=== PATIENT | female | born 1990 | race Caucasian/White ===

== ENCOUNTER → 2018-04-17 09:15 | Outpatient (CLI) | payer SELFPAY ==
--- NOTE | 2018-04-17 09:15 | DT_ITS ---
This patient was seen during an EMR downtime April 16, 2018 - April 23, 2018. This patient may have a combination of paper and electronic documentation or all paper documentation. All documentation is viewable within the e-chart portion of [facility] for each patient visit.
[2018-04-21 09:55] LABS: Group B Strep DNA By PCR Negative (Negative); Internal Control PASS; Probe Check PASS; Specimen Processing Control PASS
== END ==
PROVIDERS: Visit Provider Obstetrics & Gynecology
DX: Z36.85 Encounter for antenatal screening for Streptococcus B (principal)
CPT/HCPCS: 87081; 87653

== ENCOUNTER 2018-05-09 12:05 | Inpatient (IN) | payer SELFPAY ==
[2018-05-09 12:14] VITALS: BMI 37.5
[2018-05-09] MEDS: Oxytocin 10 UNITS/ML Vial IM (12:30)
--- NOTE | 2018-05-09 12:40 | PCM.OB.VAG ---
Vaginal Delivery Maternal Presentation: Active Labor, Spontaneous Rupture of Membranes Amniotic Membrane Rupture Type: Spontaneous at home Amniotic Fluid Description: Clear Final JUAN DIEGO: 05/15/18 Final JUAN DIEGO Source: US <20 weeks Gestational age: 39 Weeks and 1 Days Date of Procedure: 05/09/18 Pre-Operative Diagnosis: IUP, Prior Post-Operative Diagnosis: IUP, Prior Surgery/ Procedure Performed: Spontaneous Vaginal Delivery Type of Anesthesia: Local with 1% lidocaine Description of Procedure: Spontaneous vaginal delivery of a viable female with Apgars of 8/9 from an occiput anterior presentation with clear amniotic fluid and normal three-vessel placenta. First-degree midline episiotomy. Second-degree midline laceration repaired with 3-0 Vicryl suture under local anesthesia. Sponge counts okay. Successful . Delivery physician: Arnaud Giron MD. Presentation: Vertex Placental Delivery Description: Spontaneous Placenta Disposition: [facility] Cord Vessel Description: 3 Vessels Cord Entanglement: None Estimated Blood Loss: 250 cc Infant A gender: Female (1 minute): 8 (5 minute): 9 Episiotomy Description: Midline, 1st degree Laceration: Midline, Perineal Extension/lac, 2nd degree Medications given after delivery: IM [place] Complications: None
--- NOTE | 2018-05-09 12:43 | OP.PCM_ITS ---
Vaginal Delivery Maternal Presentation: Active Labor, Spontaneous Rupture of Membranes Amniotic Membrane Rupture Type: Spontaneous at home Amniotic Fluid Description: Clear Final JUAN DIEGO: 05/15/18 Final JUAN DIEGO Source: US <20 weeks Gestational age: 39 Weeks and 1 Days Date of Procedure: 05/09/18 Pre-Operative Diagnosis: IUP, Prior Post-Operative Diagnosis: IUP, Prior Surgery/ Procedure Performed: Spontaneous Vaginal Delivery Type of Anesthesia: Local with 1% lidocaine Description of Procedure: Spontaneous vaginal delivery of a viable female with Apgars of 8/9 from an occiput anterior presentation with clear amniotic fluid and normal three- vessel placenta. First-degree midline episiotomy. Second-degree midline laceration repaired with 3-0 Vicryl suture under local anesthesia. Sponge counts okay. Successful . Delivery physician: Arnaud Giron MD. Presentation: Vertex Placental Delivery Description: Spontaneous Placenta Disposition: [facility] Cord Vessel Description: 3 Vessels Cord Entanglement: None Estimated Blood Loss: 250 cc A gender: Female (1 minute): 8 (5 minute): 9 Episiotomy Description: Midline, 1st degree Laceration: Midline, Perineal Extension/lac, 2nd degree Medications given after delivery: IM [place] Complications: None
--- NOTE | 2018-05-09 12:44 | PCM.DCVAG ---
Discharge Diet: No Restrictions Discharge Activity: May Shower, May Take a Tub Bath May resume sexual activity in: 4-6 weeks Additional Activity Instructions:: Nothing in the vagina for 4-6 weeks. You may return to work/school in 6 weeks. Call your doctor if you observe: Fever of 101 or Higher, Inability to urinate, Inability to have a bowel movement, Using more than one pad per hour Additional Instructions: If you experience any of the following, contact your healthcare provider. Bleeding that soaks a pad every hour for 2 hours Unrelieved incision or abdominal pain Swelling, redness, discharge or bleeding from your incision or episiotomy site Your incision begins to separate Problems urinating (including inability to urinate or burning while urinating). Visual changes Severe headache Flu-like symptoms Pain or redness in one of both of your breasts Pain, warmth, tenderness or swelling in your legs, especially the calf area Frequent nausea and vomiting Symptoms of depression or anxiety If you experience any of the following, call 911 or go to the nearest Emergency Room. Chest pain Problems breathing Seizure activity Partial or complete paralysis of a body part, slurred speech, weakness or drooping of the face, or a sudden inability to walk or hold your balance Allergies/Adverse Reactions: Allergies No Known Allergies Allergy (Verified 02/25/15 03:32) Medications to take at Discharge Vits [Prenatabs FA] 1 tablet PO DAILY 02/25/15 Please Follow Up With: Arnaud Giron MD - [phone] When: Call to make an appointment with your doctor in 6 weeks.
--- NOTE | 2018-05-09 12:45 | DCINST_ITS ---
Discharge Diet: No Restrictions Discharge Activity: May Shower, May Take a Tub Bath May resume sexual activity in: 4-6 weeks Additional Activity Instructions:: Nothing in the vagina for 4-6 weeks. You may return to work/school in 6 weeks. Call your doctor if you observe: Fever of 101 or Higher, Inability to urinate, Inability to have a bowel movement, Using more than one pad per hour Additional Instructions: If you experience any of the following, contact your healthcare provider. * Bleeding that soaks a pad every hour for 2 hours * Unrelieved incision or abdominal pain * Swelling, redness, discharge or bleeding from your incision or episiotomy site * Your incision begins to separate * Problems urinating (including inability to urinate or burning while urinating) . * Visual changes * Severe headache * Flu-like symptoms * Pain or redness in one of both of your breasts * Pain, warmth, tenderness or swelling in your legs, especially the calf area * Frequent nausea and vomiting * Symptoms of depression or anxiety If you experience any of the following, call 911 or go to the nearest Emergency Room. * Chest pain * Problems breathing * Seizure activity * Partial or complete paralysis of a body part, slurred speech, weakness or drooping of the face, or a sudden inability to walk or hold your balance Allergies/Adverse Reactions: Allergies No Known Allergies Allergy (Verified 02/25/15 03:32) Medications to take at Discharge Vits [Prenatabs FA] 1 tablet PO DAILY 02/25/15 Please Follow Up With: Arnaud Giron MD - [phone] When: Call to make an appointment with your doctor in 6 weeks.
[2018-05-09 12:54] LABS: Hematocrit 44.2 % (37-47); Hemoglobin 14.8 g/dl (12.0-15.0); Mean Corp Hgb Conc 33.5 g/gl (32-36); Mean Corpuscular Hgb 29.6 pg (27.0-32.0); Mean Corpuscular Volume 88.4 fL (81-99); Mean Platelet Vol. 10.7 fl (6.2-12.0); Platelet Count 229 K/mm3 (150-450); RBC Distribution Width CV 14.1 % (11.6-14.6); RBC Distribution Width SD 45.3 fl (35.1-43.9); White Blood Count 13.4 K/mm3 (4.4-11.0)
[2018-05-09] MEDS: Methylergonovine 0.2 MG/ML Ampul IM (13:00)
[2018-05-09 13:06] LABS: Scan Indicated on CBC? Y/N NO
[2018-05-09 19:39] VITALS: BP 136/77; PULSE 100; RESP 18; TEMP 36.4; O2SAT 97
[2018-05-10 01:20] VITALS: BP 119/71; PULSE 91; RESP 18; TEMP 36.4; O2SAT 96
[2018-05-10 04:40] VITALS: BP 128/69; PULSE 76; RESP 16; TEMP 36.6; O2SAT 97
[2018-05-10 08:30] VITALS: BP 124/70; PULSE 92; RESP 20; TEMP 36.1; O2SAT 98
--- NOTE | 2018-05-10 09:37 | PCM.PN.OB ---
Subjective: Patient without complaints. Breast-feeding going well. Wants to go home later today if possible. - Physical Exam Vital Signs Temp Pulse Resp BP Pulse Ox 96.9 F L 92 20 H 124/70 H 98 05/10/18 08:30 05/10/18 08:30 05/10/18 08:30 05/10/18 08:30 05/10/18 08:30 Oxygen Delivery Method Room Air Weight: 210 lb Body Mass Index (BMI) 37.5 Intake and Output for Last 24 Hours 05/08/18 05/09/18 05/10/18 23:59 23:59 23:59 Intake Total 500 / 500 Output Total 2400 / 2400 Balance -1900 / -1900 Laboratory Tests Past 24 Hrs 05/09/18 05/09/18 12:35 12:35 WBC 13.4 H RBC 5.00 Hgb 14.8 Hct 44.2 MCV 88.4 MCH 29.6 MCHC 33.5 RDW 14.1 RDW Differential 45.3 H Plt Count 229 MPV 10.7 Blood Type O POSITIVE Antibody Screen NEGATIVE Medical Necessity - Tobacco Use Smoking Status: Never smoker Assessment/Plan Doing well day #1. Will release to home with routine instructions if baby is able to be released.
[2018-05-10 12:30] VITALS: BP 146/70; PULSE 89; TEMP 36.3; O2SAT 97
[2018-05-10 18:15] VITALS: BP 130/79; PULSE 101
== END 2018-05-10 18:15 | disposition home or self-care (01) | DRG 775 ==
PROVIDERS: Admitting Provider Obstetrics & Gynecology; Visit Provider Obstetrics & Gynecology
DX: O34.211 Maternal care for low transverse scar from previous cesarean delivery (principal); O42.02 Full-term premature rupture of membranes, onset of labor within 24 hours of rupture; O70.1 Second degree perineal laceration during delivery; Z3A.39 39 weeks gestation of pregnancy; Z37.0 Single live birth
CPT/HCPCS: 59050; 85027; 86850; 86900; 99218; G0378

== ENCOUNTER → 2021-08-10 | Outpatient (CLI) | payer SELFPAY ==
[2021-08-13 05:07] LABS: Chlamydia By Nucleic Acid AMP Negative (Negative)
[2021-08-13 10:16] LABS: Gonococcus By Nucleic Acid AMP Negative (Negative)
[2021-08-13 15:38] LABS: HPV Reflexed? NOT INDICATED
== END | disposition home or self-care (01) ==
LOC: LABSPEC 08-11 11:13
PROVIDERS: Visit Provider Obstetrics & Gynecology
DX: Z12.4 Encounter for screening for malignant neoplasm of cervix (principal); Z11.3 Encounter for screening for infections with a predominantly sexual mode of transmission
CPT/HCPCS: 87491; 87591; 88175; G0145

== ENCOUNTER → 2021-11-02 09:10 | Outpatient (CLI) | payer SELFPAY ==
[2021-11-02 12:06] LABS: Hematocrit 37.5 % (37-47); Hemoglobin 12.4 g/dL (12.0-15.0); Mean Corp Hgb Conc 33.1 g/dL (32-36); Mean Corpuscular Volume 90.8 fL (81-99); Mean Platelet Vol. 10.5 fl (6.2-12.0); Platelet Count 248 K/mm3 (150-450); RBC Distribution Width CV 13.2 % (11.6-14.6); RBC Distribution Width SD 43.8 fl (35.1-43.9); Red Blood Count 4.13 M/mm3 (4.2-5.4); White Blood Count 8.7 K/mm3 (4.4-11.0)
[2021-11-02 12:11] LABS: Glucose Challenge Gest 1H 50g 118 mg/dL (70-140)
== END ==
PROVIDERS: Visit Provider Obstetrics & Gynecology
DX: Z34.83 Encounter for supervision of other normal pregnancy, third trimester (principal)
CPT/HCPCS: 36415; 82950; 85027

== ENCOUNTER 2022-01-04 11:30 | Outpatient (CLI) | payer SELFPAY | END 2022-01-04 23:59 | disposition home or self-care (01) | LOC: LABSPEC 01-05 09:01 | PROVIDERS: Visit Provider Obstetrics & Gynecology | DX: Z36.85 Encounter for antenatal screening for Streptococcus B (principal) | CPT/HCPCS: 87077; 87081; 87186 ==

== ENCOUNTER 2022-01-18 13:48 | Outpatient (CLI) | payer SELFPAY ==
[2022-01-18 15:42] LABS: T4 Free Direct 1.19 ng/dL (0.76-1.46); Thyroid Stim Hormone (TSH) 0.46 uIU/mL (0.358-3.74)
== END 2022-01-18 23:59 | disposition home or self-care (01) ==
LOC: LABSPEC 13:49
PROVIDERS: Visit Provider Student in an Organized Health Care Education/Training Program
DX: E03.9 Hypothyroidism, unspecified (principal)
CPT/HCPCS: 36415; 84439; 84443; 84481

== ENCOUNTER 2022-01-27 01:35 | Inpatient (IN) | payer SELFPAY ==
[2022-01-27] VITALS (21 sets, daily range): BP systolic 98–145; BP diastolic 58–86; PULSE 69–90; RESP 16–18; TEMP 36.1–36.8; O2SAT 96–99; BMI 38.0
[2022-01-27] MEDS: Lactated Ringers 1,000 ML 50 ML IV (01:45)
[2022-01-27] MEDS: Oxytocin 30 units/NS 500 ml 30 UNITS/500 ML IV.SOLN 334 UNITS IV (02:00)
[2022-01-27 02:06] LABS: Absolute Lymphocyte Count 3.01 X10^3/uL (0.83-4.51); Absolute Neutrophil Count 6.3 X10^3/uL (2.0-7.7); Basophil# 0.08 X10^3/uL; Basophil% 0.8 % (0-1); Eosinophil# 0.07 X10^3/uL; Eosinophils% 0.7 % (0-5); Hematocrit 41.4 % (37-47); Hemoglobin 14.4 g/dL (12.0-15.0); Lymphocyte # 3.01 X10^3/ul (0.83-4.51); Lymphocyte % 29.1 % (19-41); Mean Corp Hgb Conc 34.8 g/dL (32-36); Mean Corpuscular Hgb 30.7 pg (27.0-32.0); Mean Corpuscular Volume 88.3 fL (81-99); Mean Platelet Vol. 10.6 fl (6.2-12.0); Monocyte# 0.69 X10^3/uL; Monocyte% 6.7 % (0-10); NRBC Flagged by Analyzer 0 % (0-5); Neutrophil # 6.28 X10^3/uL (2.7-7.7); Neutrophil % 60.7 % (47-70); Platelet Count 238 K/mm3 (150-450); RBC Distribution Width CV 13.6 % (11.6-14.6); RBC Distribution Width SD 43.8 fl (35.1-43.9); Red Blood Count 4.69 M/mm3 (4.2-5.4); White Blood Count 10.3 K/mm3 (4.4-11.0)
--- NOTE | 2022-01-27 02:06 | HP.PCM_ITS ---
History and Physical Date of Admission: 01/27/22 ACOG ANTEPARTUM RECORD - HISTORY AND PHYSICAL (01/27/2022) Name: HEIDI MISHRA History of this : This is a 31 year old [id number] presents at 39 wks + 5 days gestation in advanced labor. About 5 minutes after arrival the patient precipitously delivered. PNC remarkable for prior and successful VBACs. OB Physician: Arnaud Giron MD 's Physician: Amos Zepeda [facility] ...................................................................... : 1990 Age: 31 Address: [address] [place] [address] Phone: (H) [phone] (O) [phone] Insurance Carrier: Emergency Contact: [employer] [phone] ...................................................................... Final JUAN DIEGO: 01/29/22 By Ultrasound: 13 weeks 5 days PARITY: (G-Total Pregnancies P-Fullterm,Premature,Induced AB,Spont AB, Ectopics, Multiple,Living) JUAN DIEGO CONFIRMATION: By LMP: 04/25/21 Final JUAN DIEGO: 01/29/22 OB PROBLEM LIST: PCS for breech. Two successful VBACs. Plans third. At WP 15 min prior to last delivery... Had thyroidectomy--on synthroid Marginal posterior previa 1cm from cx at 19 weeks 4 days--repeat u/s at 28- 30 wks --resolved ALLERGIES: NKDA MEDICATIONS: Calcium 500 500 mg calcium (1,250 mg) chewable tablet One pill by mouth once a day Fish Oil 1,000 mg (120 mg-180 mg) capsule 1po qday 27-0.8 mg tablet One pill by mouth once a day Supplement (s) [No Strength] Bio Devang one cap daily Synthroid 150 mcg tablet One pill by mouth once a day Vitamin D3 25 mcg (1,000 unit) tablet Two once daily SOCIAL HISTORY: Smoking - Never Alcohol Use - None Diet - avoids gluten and sugar. No sodas. occ tea. Water-several large glasses. Lifestyle - moderate stress lifestyle and Exercise - Busy w home and children ages 3,6,9. Enc 15-20 min most days Employer - Tax Lawyer Job Description - Illicit Drug Use - None Sexual Activity - Place of - [place] Spouse-Sig Other Name - Rob Mishra Spouse-Sig Other Occupation - [employer] Spouse-Sig Other Phone No - work [phone] for emergency use ONLY Children Name(s) - Ming (12), Ryan (15) Lacey (18) PRIOR DELIVERY HISTORY __ DEL DATE GEST LAB WT LB WT OZ TYPE ANES LABOR TX Nov 29 6 0 0 0 Sab None No 01 Oct 16 6 0 0 0 Sab None No 08 Jesus 12 40 0 7 7 C-Sec Epidural No 15 Apr 15 39 10 8 4 Vag Epidural No 26 Apr 14 8 0 0 0 Sab None No 27 Jesus 18 39 2 8 10 Vag Local No ANTEPARTUM FLOW CHART VISIT GE RTC FU F F [place] U U DATE WK MD WKS HT PN HR M SS BP ED WT [place] GL D EF ST __ ____ ___ __ __ ___ __ __ __ ___ __ __ __ ___ __ 16 Jan 39 JMW 1 38 V + + 110/80 0 208 ne ne 3 60 -2 08 Jan 38 CM 1 38 V + + 118/86 sl 210 - - 2 60 -3 01 Jan 37 JMW 1 37 + + 110/80 sl 207 tr - 22 Dec 36 JMW 1 36 V + + 112/78 0 208 tr - 1 50 hi 08 Dec 34 JMW 2 34 + + 112/80 0 205 - 18 Dec 13 JMW 3 31 + + 122/82 sl 201 - - Nov 08 JMW 2 27 + + 122/72 sl 199 - - Oct 05 JMW 4 24 + + 104/70 0 197 ne ne Aug 31 JMW 4 19 + 132/72 192 - - ANTEPARTUM NOTE(S): Jan 26 2022: FM well, No complaints Jan 18 2022: no concerns Jan 11 2022: Good FM Jan 04 2022: GBS today, Good FM Dec 21 2021: feeling well. Concerned about thyroid levels. AM Nov 30 2021: Sono Today, Good FM Nov 02 2021: CBC,OGCT Today, Good FM Oct 06 2021: rash ?PI; cortisone cream/benadryl resolving now Sep 08 2021: Doing Well, Declines AFP COMPREHENSIVE ANTEPARTUM NOTE(S): Jan 18 2022: Heidi is here for a pnv. Good FM. Sl edema present. Denies concerns/ questions at this time. No ctx's. MK Jan 18 2022: 38/3w. Hypothyroidism - on Synthroid, managed by endocrine. Does not have apt until end of February, will get labs today. Send results to endocrine for input on med adjustment if needed. Planned for TOLAC. GBS pos. F/u 1w. CM Jan 11 2022: Heidi is here for visit. She continues with some palpitation but they are not every day. Asking about thyroid adjustment. Has f/u appt with Hydrochloric Area Supervisor in February. Advised this should be fine and they will address dosing changes if needed . She did have change in medication to 150 mcg during the later part of this . She had previously been on 137 mcg. We did discuss Jan 11 2022: H taken to OB. tkg Jan 04 2022: Heidi is here for visit. Relates every couple days she will have a little bit of heart palpitations and feels warm.This does not happen everyday. She is encouraged to decrease caffeine use. Call if sx become progressive. Reviewed FM, SROM, and labor. consent provided and what to take to hospital. LMT Oct 06 2021: Heidi is here at 23.4 w gestation for visit. Baby active. Instructions for glucose given. She has a bottle at home. Heidi has an itchy red rash on most of her body- sparing her palms and soles and minimal on her back and face. She has a large approx 6 or 7 inches across red, hot to touch. Noted this starting about 3 weeks ago. DEXTER. Sep 08 2021: Heidi her for PNV. Pt doing very no concerns or complaints today. CB Sep 07 2021: TELEHEALTH NOB--Heidi is a 30 yo G 7 P 3 Yahir homemaker w JUAN DIEGO 01-29-22 planning her third at [facility] probably without an epidural, using [facility] and to breastfeed. Her is Rob who works as a sand bobber. They have two boys ages 9 and 6 and a 3 yo daughter. The was planned and they are pleased. Heidi has NKAD or latex. Her diet sounds balanced with her avoiding Aug 10 2021: Heidi presents here today for Missed Menses appointment. 30 y.o. G 7 P 3 non-smoker with LMP of 04-25-21 lasting her average of 6-7 days. UPT is positive today in our Office. Presents at 15 weeks 2 days with and approximate JUAN DIEGO of 01-29-22. Plans to have at [facility] again as long as she meets criteria. History of all normal pap screenings from 2014 through 2018. Currently taking an OTC Aug 10 2021: ok REVIEW OF SYSTEMS: GENERAL - Denies fever, or chills SKIN - Denies rash, new skin lesions, or change in moles EYES - Denies blurred vision, or change in visual acuity EARS - Denies ear pain, or difficulty hearing NOSE - Denies nasal congestion, discharge, or bleeding MOUTH - Denies sore throat, or difficulty swallowing NECK - Denies pain or swelling RESPIRATORY - Denies shortness of breath, cough, wheezing CARDIOVASCULAR - Denies palpitations, chest pain, orthopnea, PND, peripheral edema, syncope or claudication GASTROINTESTINAL - Denies nausea, vomiting, diarrhea, constipation, Denies abdominal pain, melena and or bright red blood GENITOURINARY - Denies dysuria, frequency of urination, urgency, or hesitancy MUSCULOSKELETAL - Denies joint or muscle pain, or back pain NEUROLOGICAL - Denies localized numbness, weakness, or tingling PSYCHIATRIC - Denies depression, anxiety, substance abuse or suicide attempts ENDOCRINE - Denies heat or cold intolerance, weight loss or gain, increasing thirst HEMATO-IMMUNOLOGIC - Denies easy bruising, bleeding, oral ulcerations or recurrent infections GENETICS SCREENING: Age 35+ years: No Thalassemia: No Neural Tube Defect: No Down Syndrome: No JACKIE-SACHS: No Sickle Cell Disease: No Hemophilia: No Musc. Dystrophy: No Cystic Fibrosis: Nenavi -- Declines screening Mcmullen Chorea: No Mental Retardation: No Fragile X: No Other genetic: No Other defects: No SABs/still births: Yes x3 Drugs since LMP: Yes INFECTION HISTORY: High risk AIDS: No High risk Hepatitis: No Exposed to TB: No Exposed to Herpes: No Rash/viral illness since LMP: No History of STD: No MENSTRUAL HISTORY: *Menses Amount/Duration: 6-7 DAYSMenses Regularity: RegularFrequency: monthlyMenarche (Age Onset): 10* PAST SUMMARY: PARITY: 1. Total Pregnancies............ 7 2. Full Term Pregnancies........ 3 3. Premature.................... 0 4. Abortions - Induced.......... 0 5. Abortions - Spontaneous...... 3 6. Ectopics..................... 0 7. Multiple Births.............. 0 8. Living Children.............. 3 PAST #1: Date of :.................. 04/20/12 Gestation Weeks:................ 40 Length of labor(hours):......... 0 Sex:............................ M Weight-lbs:............... 7 Weight-oz:................ 7 Type of Delivery:............... C-Sect Type of Anesthesia:............. Epidural Place of Delivery:.............. [place] Treatment of Labor?:.... No Comment: PAST #2: Date of :.................. 03/08/14 Gestation Weeks:................ 8 Length of labor(hours):......... 0 Sex:............................ Weight-lbs:............... 0 Weight-oz:................ 0 Type of Delivery:............... Sab Type of Anesthesia:............. None Place of Delivery:.............. [place] Treatment of Labor?:.... No Comment: PAST #3: Date of :.................. 02/25/15 Gestation Weeks:................ 39 Length of labor(hours):......... 10 Sex:............................ M Weight-lbs:............... 8 Weight-oz:................ 4 Type of Delivery:............... Vag Type of Anesthesia:............. Epidural Place of Delivery:.............. [place] Treatment of Labor?:.... No Comment: VACUUM DELIVERY PAST #4: Date of :.................. 08/13/16 Gestation Weeks:................ 6 Length of labor(hours):......... 0 Sex:............................ Weight-lbs:............... 0 Weight-oz:................ 0 Type of Delivery:............... Sab Type of Anesthesia:............. None Place of Delivery:.............. HOME Treatment of Labor?:.... No Comment: PAST #5: Date of :.................. 11/13/16 Gestation Weeks:................ 6 Length of labor(hours):......... 0 Sex:............................ Weight-lbs:............... 0 Weight-oz:................ 0 Type of Delivery:............... Sab Type of Anesthesia:............. None Place of Delivery:.............. HOME Treatment of Labor?:.... No Comment: PAST #6: Date of :.................. 05/09/18 Gestation Weeks:................ 39 Length of labor(hours):......... 2 Sex:............................ F Weight-lbs:............... 8 Weight-oz:................ 10 Type of Delivery:............... Vag Type of Anesthesia:............. Local Place of Delivery:.............. [place] Treatment of Labor?:.... No Comment: DEL 15 M AFTER ARRIVAL AT PHYSICAL EXAMINATION General Appearence: 31 yo female in no acute distress Vital Signs: AF, VSS Heart: RRR without rubs or gallops Lungs: CTA x 2 Breasts: deferred Abdomen: gravid Pelvis: Cervix: Presentation: cephalic Station: Fetus: Size: AGA Movement: present Heart: present LAB TEST(S) ORDERED SINCE:05/04/21 11/02/2021 GLUCOSE CHALLENGE GEST 1H 50G 11/02/2021 CBC-COMPLETE BLOOD CNT NO DIFF 09/13/2021 Panel-Thyroid 08/25/2021 Initial OB Labs 08/16/2021 POMERENE 3 [CCL] 08/16/2021 HEPATITIS C AB IA W/CONFIRM [CCL] 08/13/2021 PAP IG W/REFLEX HR HPV APTIMA 08/13/2021 CHLAMYDIA/GC FELIBERTO APTIMA 08/10/2021 URINALYSIS 08/10/2021 TSH 08/10/2021 CBC + DIFF 08/10/2021 BB TYPE 01/18/2022 THYROID STIM HORMONE (TSH) 01/18/2022 T4 FREE DIRECT 01/18/2022 FREE T3 01/09/2022 RULE OUT BETA STREP (GRP. B) == ==== Order Observation Description Value Ref_Range A* Site == ==== T4 FREE DIRECT NOTE S[facility]Z T4 FREE DIRECT T4 FREE DIRECT 1.19 ng/dL 0.76-1.46 ML THYROID STIM HO NOTE [facility] THYROID STIM HO TSH 0.46 uIU/mL 0.358-3.74 ML FREE T3 NOTE [facility] FREE T3 FREE T3 2.0 pg/mL 2.18-3.98 L ML RULE OUT BETA S NOTE [facility] GLUCOSE CHALLEN NOTE [facility] GLUCOSE CHALLEN GLU GEST 50G 1H 118 mg/dL 70-140 ML CBC-COMPLETE BL NOTE [facility] CBC-COMPLETE BL WBC 8.7 K/mm3 4.4-11.0 ML CBC-COMPLETE BL RBC 4.13 M/mm3 4.2-5.4 L ML CBC-COMPLETE BL HGB 12.4 g/dL 12.0-15.0 ML CBC-COMPLETE BL HCT 37.5 37-47 ML CBC-COMPLETE BL MCV 90.8 fL 81-99 ML CBC-COMPLETE BL MCH 30.0 pg 27.0-32.0 ML CBC-COMPLETE BL MCHC 33.1 g/dL 32-36 ML CBC-COMPLETE BL RDW CV 13.2 11.6-14.6 ML CBC-COMPLETE BL RDW SD 43.8 fl 35.1-43.9 ML CBC-COMPLETE BL PLT 248 K/mm3 150-450 ML CBC-COMPLETE BL MPV 10.5 fl 6.2-12.0 ML Panel-Thyroid Thyroid Stimulating Horm scanned micro IU/ml 0.4-5.5 [facility] HEPATITIS C AB NOTE [facility] HEPATITIS C AB HEPATITIS C AB IA Negative NEGAT [facility] [address] [address] Antonio Moreira III, M.D. [id number] POMERENE 3 [CCL NOTE [facility] POMERENE 3 [CCL RPR Non Reactive NR JPLAB POMERENE 3 [CCL HEPATITIS B SURF. AG Negative NEGAT [facility] POMERENE 3 [CCL RUBELLA IGG AB, QUAL Positive NEGAT A [facility] Sample is considered positive for IgG antibodies to rubella virus. A positive result indicates previous exposure to Rubella virus or vaccination. POMERENE 3 [CCL RUBELLA IGG AB 1.01 Indexlue [facility] Index values are interpreted as follows: Negative specimens <0.90 Equivocol specimens 0.90 to 0.99 Positive specimens >0.99 The magnitude of the measured result is not indicative of the amount of antibody present. [address] [address] Antonio Moreira III, M.D. [id number] BB TYPE NOTE [facility] BB TYPE BB TYPE JPLAB TYPE, Rh, AND SCREEN BB TYPE ABO O JPLAB BB TYPE RH POS [facility] BB TYPE ANTIBODY SCR negative [facility] URINALYSIS NOTE [facility] URINALYSIS URINALYSIS JPLAB URINALYSIS URINALYSIS SPECIMEN TYPE UNSPECIFIED [facility] URINALYSIS COLOR p.yel NORMAL: YELLOW [facility] URINALYSIS CLARITY clear NORMAL: CLEAR [facility] URINALYSIS PH 6 NORMAL: 5.0-8.0 J[facility] URINALYSIS PROTEIN NEG NORMAL: NEGATIV [facility] URINALYSIS GLUCOSE NORM NORMAL: NORMAL [facility] URINALYSIS KETONE NEG NORMAL: NEGATIV [facility] URINALYSIS BILIRUBIN NEG NORMAL: NEGATIV [facility] URINALYSIS BLOOD NEG NORMAL: NEGATIV [facility] URINALYSIS UROBILINOG NORM NORMAL: NORMAL [facility] URINALYSIS SP GRAVITY 1.010 NORMAL: 1.010-1 [facility]INALYS[facility] NITRITE NEG NORMAL: NEGATIV [facility] URINALYSIS LEUKOCYTES NEG NORMAL: NEGATIV [facility] URINALYSIS MICROSCOPIC NOT INDICATED [facility] TSH NOTE [facility] TSH TSH 4.15 uIU/ml 0.35 - 3.74 H [facility] CBC + DIFF NOTE [facility] CBC + DIFF CBC + DIFF [facility] CBC-COMPLETE BLOOD COUNT CBC + DIFF WBC 9.0 x 10EE3/UL 4.5 - 10.8 [facility] CBC + DIFF RBC 4.44 x 10EE6/UL 4.10 - 5.30 [facility] CBC + DIFF HEMOGLOBIN 13.6 g/dl 12.0 - 16.0 [facility] CBC + DIFF HEMATOCRIT 39.6 % 34.0 - 46.0 [facility] CBC + DIFF MCV 89 fl 80 - 99 [facility] CBC + DIFF MCH 31 pg 27 - 33 [facility] CBC + DIFF MCHC 34 X10 3 32 - 36 [facility] CBC + DIFF RDW/CV 13.6 % 12.0 - 15.6 [facility] CBC + DIFF PLATELET 314 x10EE3/UL 150 - 450 [facility] CBC + DIFF MPV 8.9 fl 6.6 - 10.5 [facility] AUTOMATED DIFFERENTIAL CBC + DIFF NEUT % 65.6 % 46.0 - 76.0 [facility] CBC + DIFF LYMPH % 25.8 % 20.0 - 45.0 [facility] CBC + DIFF MONOS % 5.7 % 0.0 - 10.0 [facility] CBC + DIFF EO % 1.8 % 0.0 - 7.0 [facility] CBC + DIFF BASO % 1.1 % 0.0 - 2.0 [facility] CBC + DIFF LYMPH # 2.30 x10EE3/UL 0.80 - 2.80 [facility] CBC + DIFF NEUT # 5.90 x10EE3/UL 1.50 - 7.10 [facility] CBC + DIFF MONO # 0.50 x10EE3/UL 0.20 - 1.00 [facility] CBC + DIFF EO # 0.20 x10EE3/UL 0.00 - 0.50 [facility] CBC + DIFF BASO # 0.10 x10EE3/UL 0.00 - 0.10 [facility] CBC + DIFF MANUAL DIFF N/A [facility] CBC + DIFF MORPHOLOGY N/A [facility] {CD] PAP IG W/REFLEX NOTE [facility] PAP IG W/REFLEX DIAG Comment . [facility] NEGATIVE FOR INTRAEPITHELIAL LESION OR MALIGNANCY. FUNGAL ORGANISMS MORPHOLOGICALLY CONSISTENT WITH ELI SPECIES ARE PRESENT. PAP IG W/REFLEX ADEQ Comment . [facility] Satisfactory for evaluation. Endocervical and/or squamous metaplastic cells (endocervical component) are present. PAP IG W/REFLEX PERFORM Comment . [facility] Jhoana Samuels, Bag Printer (ASCP) This liquid based ThinPrep(R) pap test was screened with the use of an image guided system. PAP IG W/REFLEX COMM . . [facility] PAP IG W/REFLEX PAPSMR Comment . [facility] The Pap smear is a screening test designed to aid in the detection of premalignant and malignant conditions of the uterine cervix. It is not a diagnostic procedure and should not be used as the sole means of detecting cervical cancer. Both false-positive and false-negative reports do occur. PAP IG W/REFLEX HPV RFLX Comment . [facility] The HPV DNA reflex criteria were not met with this specimen result therefore, no HPV testing was performed. Performed at: - [address], [place] [id number] Structures Engineer: Allie Grier MD, Phone: [phone] CHLAMYDIA/GC NA NOTE [facility] CHLAMYDIA/GC NA CHLAMY,NUC ACID Negative Negative [facility] CHLAMYDIA/GC NA GC BY NUC ACID Negative Negative [facility] Performed at: - [address] [id number] Structures Engineer: Allie Grier MD, Phone: [phone] Initial OB Labs HIV Test Negataive (Scanned) Negative [facility] Streptococcus agalactiae (B) Amount Growth Growth Streptococcus agalactiae (B): REACTION Ampicillin <=0.25 Penicillin G <=0.06 S Ceftriaxone <=0.12 S Clindamycin <=0.25 S Clindamycin.induced NEG Linezolid <=2 S Vancomycin 0.5 S == ==== Impression /Plan: 39 wks + 5 days intrauterine in late stage labor for . Preparations in progress for delivery.
--- NOTE | 2022-01-27 02:08 | EX.PCM.OBRPT ---
Maternal Data Information Final JUAN DIEGO: 01/29/22 Final JUAN DIEGO Source: US <20 weeks Gestational age: 39w5d Vaginal Delivery Maternal Presentation Maternal Presentation: Active Labor Maternal Presentation: Patient presented to labor and delivery in late stage active labor and precipitously delivered proximately 5 minutes after arriving to labor and delivery. Operative Information Date of Procedure: 01/27/22 Pre-Operative Diagnosis: IUP, Prior Post-Operative Diagnosis: IUP, Prior Type of Anesthesia: None Estimated Blood Loss: 250 cc Findings Description of Procedure: Spontaneous vaginal delivery () of a viable female with Apgars of 8/9 from an occiput anterior presentation with lightly stained meconium fluid and three-vessel placenta. No episiotomy. Small first-degree left labial laceration not bleeding and not repaired. Sponges okay. Patient was delivered by nursing staff precipitously including cord clamp. Placenta in place at my arrival and was delivered by myself Arnaud Giron MD. Presentation: Vertex Amniotic Membrane Rupture Type: Spontaneous Amniotic Fluid Description: Lightly stained meconium Placental Delivery Description: Spontaneous Placenta Disposition: [facility] Cord Vessel Description: 3 Vessels Cord Entanglement: None Infant A Gender: Female (1 minute): 8 (5 minute): 9 Post Vaginal Delivery Medications Given After Delivery: IV Pitocin Episiotomy Description: None Laceration: Left Mediolateral and 1st degree Complication Complications: None (Except precipitous delivery)
[2022-01-27] MEDS: 0.9% Saline Lock 10 ML Syringe IV (04:59)
[2022-01-27] MEDS: Levothyroxine 150 MCG Tablet PO (06:21)
--- NOTE | 2022-01-27 09:46 | PN.OBGYN_ITS ---
Subjective Subjective Patient without complaints. Breast-feeding going well. Baby is staying for 36 hours. Objective Data Objective Data Vital Signs: Vital Signs Temp Pulse Resp BP Pulse Ox 98.2 F 77 16 113/66 97 01/27/22 08:58 01/27/22 08:58 01/27/22 08:58 01/27/22 08:58 01/27/22 08:58 Oxygen Delivery Method Room Air Weight: 208 lb Body Mass Index (BMI) 38.0 Intake & Output: Intake and Output for Last 24 Hours 01/25/22 01/26/22 01/27/22 23:59 23:59 23:59 Intake Total 537.5 / 537.5 Output Total 400 / 400 Balance 137.5 / 137.5 Lab / Micro Data Result Diagrams: 01/27/22 01:45 Labs: Laboratory Results - last 24 hr 01/27/22 01:45: WBC 10.3, RBC 4.69, Hgb 14.4, Hct 41.4, MCV 88.3, MCH 30.7, MCHC 34.8, RDW Std Deviation 43.8, RDW Coeff of Gustavo 13.6, Plt Count 238, MPV 10.6, Immature Gran % (Auto) 2.000 H, Neut % (Auto) 60.7, Lymph % (Auto) 29.1, [place] % (Auto) 6.7, Eos % (Auto) 0.7, Baso % (Auto) 0.8, Absolute Neuts (auto) 6.3, Absolute Lymphs (auto) 3.01, Nucleated RBC % 0 01/27/22 02:15: Blood Type O POSITIVE, Antibody Screen NEGATIVE Assessment & Plan (1) Spontaneous vaginal delivery: PLAN: Doing well day #0 status post routine spontaneous vaginal delivery. Continuing present care.
--- NOTE | 2022-01-27 10:56 | NURSING ---
This RN giving report to Ariel Weaver, who will resume care at this time.
[2022-01-28 01:54] VITALS: BP 121/70; PULSE 74
[2022-01-28 02:00] VITALS: BP 121/70; PULSE 74; RESP 16; TEMP 35.9; O2SAT 98
--- NOTE | 2022-01-28 05:41 | PCM.PN.OB ---
Subjective Subjective Patient without complaints. Breast-feeding going well. Wants to go home later today. Objective Data Objective Data Vital Signs: Vital Signs Temp Pulse Resp BP Pulse Ox 96.6 F L 74 16 121/70 H 98 01/28/22 02:00 01/28/22 02:00 01/28/22 02:00 01/28/22 02:00 01/28/22 02:00 Oxygen Delivery Method Room Air Weight: 208 lb Body Mass Index (BMI) 38.0 Intake & Output: Intake and Output for Last 24 Hours 01/26/22 01/27/22 01/28/22 23:59 23:59 23:59 Intake Total 537.5 / 537.5 Output Total 400 / 400 Balance 137.5 / 137.5 Lab / Micro Data Result Diagrams: 01/27/22 01:45 Assessment & Plan (1) Spontaneous vaginal delivery: PLAN: Doing well day #1 status post routine spontaneous vaginal delivery. Will discharge to home later today with routine instructions.
--- NOTE | 2022-01-28 05:42 | PCM.DC ---
Discharge Instructions Diet Discharge Diet: No restrictions Activity Discharge Activity: May Drive (In 1 to 2 days if not taking narcotic pain medication), May Shower and May Take a Tub Bath May resume sexual activity in: 4-6 weeks Additional Activity Instructions:: Nothing in the vagina for 4-6 weeks. You may return to work/school in 6 weeks. Dressing / Incision Call your doctor if you observe: Fever of 101 or Higher, Inability to urinate, Inability to have a bowel movement and Using more than 1 pad per hour Follow Up Care Please Follow Up With: Arnaud Giron MD When: Call [phone] to make an appointment with your doctor in 6 weeks. Test Results: Test results from this visit will be discussed in further detail at your follow-up appointment, if applicable. Discharge Plan Admission Admit Date/Time: 01/27/22 01:35 Primary Reason for Your Visit: Vaginal Delivery Attending Provider: Arnaud Giron Primary Care Provider: Care Physician,Lin Primary Discharge Orders/Prescriptions Prescriptions: No Action Prenatabs FA 1 TABLET tablet 1 tab PO DAILY RF: 0 levothyroxine 150 mcg tablet 150 mcg PO DAILY RF: 0 Referrals / Follow Up: Care Physician,No Primary [Primary Care Provider] - Disposition Disposition (needs filled in before D/C Order can be placed): Home, Self Care
[2022-01-28] MEDS: Levothyroxine 150 MCG Tablet PO (06:59)
[2022-01-28 07:57] VITALS: BP 117/56; PULSE 67
[2022-01-28 08:05] VITALS: BP 117/56; PULSE 67; RESP 16; TEMP 36.1
== END 2022-01-28 13:45 | disposition home or self-care (01) | DRG 806 ==
PROVIDERS: Admitting Provider Obstetrics & Gynecology; Visit Provider Obstetrics & Gynecology
DX: O62.3 Precipitate labor (principal); Z37.0 Single live birth; O98.82 Other maternal infectious and parasitic diseases complicating childbirth; E03.9 Hypothyroidism, unspecified; B95.1 Streptococcus, group B, as the cause of diseases classified elsewhere; O70.0 First degree perineal laceration during delivery; O77.0 Labor and delivery complicated by meconium in amniotic fluid; Z3A.39 39 weeks gestation of pregnancy; O99.284 Endocrine, nutritional and metabolic diseases complicating childbirth; Z79.899 Other long term (current) drug therapy; O34.219 Maternal care for unspecified type scar from previous cesarean delivery
CPT/HCPCS: 85025; 86850; 86900; 86901; 99218; J7120; A4216; G0378